=== PATIENT | female | born 1950 | race Caucasian/White ===

== ENCOUNTER → 2017-02-05 | Outpatient (CLI) | payer OTHER, MEDICARE | LOC: BMCIMAGING 10:24 | PROVIDERS: ATTEND Family Medicine | DX: Z12.39 Encounter for other screening for malignant neoplasm of breast (principal); N64.4 Mastodynia | CPT/HCPCS: 76641; G0204 ==

== ENCOUNTER → 2017-04-16 | Outpatient (CLI) | payer OTHER, MEDICARE | LOC: FIMAGING 08:46 | PROVIDERS: ATTEND Specialist | DX: N20.0 Calculus of kidney (principal); Z90.5 Acquired absence of kidney ==

== ENCOUNTER → 2017-09-02 | Outpatient (CLI) | payer OTHER, MEDICARE | LOC: BMCIMAGING 15:29 | PROVIDERS: ATTEND Podiatrist Foot & Ankle Surgery | DX: M19.072 Primary osteoarthritis, left ankle and foot (principal); M77.32 Calcaneal spur, left foot ==

== ENCOUNTER → 2017-11-04 | Outpatient (CLI) | payer OTHER, MEDICARE | LOC: FLAB 13:37 | PROVIDERS: ATTEND Specialist | DX: N20.0 Calculus of kidney (principal) ==

== ENCOUNTER → 2018-02-07 | Outpatient (CLI) | payer OTHER, MEDICARE | LOC: BMCIMAGING 09:41 | PROVIDERS: ATTEND Family Medicine | DX: Z13.820 Encounter for screening for osteoporosis (principal); M85.89 Other specified disorders of bone density and structure, multiple sites; E07.9 Disorder of thyroid, unspecified; Z96.641 Presence of right artificial hip joint; Z79.899 Other long term (current) drug therapy ==

== ENCOUNTER → 2018-02-10 | Outpatient (CLI) | payer OTHER, MEDICARE | LOC: BMCIMAGING 07:31 | PROVIDERS: ATTEND Family Medicine | DX: Z82.49 Family history of ischemic heart disease and other diseases of the circulatory system (principal); E78.00 Pure hypercholesterolemia, unspecified ==

== ENCOUNTER → 2018-02-15 | Outpatient (CLI) | payer OTHER, MEDICARE | LOC: BRMIMAGING 09:25 | PROVIDERS: ATTEND Family Medicine | DX: Z00.00 Encounter for general adult medical examination without abnormal findings (principal) ==

== ENCOUNTER → 2018-04-28 | Outpatient (CLI) | payer OTHER, MEDICARE | LOC: FIMAGING 11:11 → EDSTATUS 11:11 | PROVIDERS: ATTEND Specialist | DX: N20.0 Calculus of kidney (principal); Z90.5 Acquired absence of kidney ==

== ENCOUNTER → 2018-05-06 | Outpatient (CLI) | payer OTHER, MEDICARE | LOC: BMCIMAGING 10:13 ==

== ENCOUNTER → 2018-06-02 | Outpatient (CLI) | payer OTHER, MEDICARE | LOC: EMCIMAGING 10:23 | PROVIDERS: ATTEND Physician Assistant Medical | DX: N20.0 Calculus of kidney (principal) | CPT/HCPCS: 74176-PN ==

== ENCOUNTER → 2018-06-28 | Outpatient (CLI) | payer OTHER, MEDICARE | LOC: FIMAGING 10:45 | PROVIDERS: ATTEND Specialist | DX: N20.0 Calculus of kidney (principal) ==

== ENCOUNTER → 2018-07-27 | Outpatient (CLI) | payer OTHER, MEDICARE | LOC: FIMAGING 14:46 | PROVIDERS: ATTEND Specialist | DX: N20.0 Calculus of kidney (principal) ==

== ENCOUNTER → 2018-08-09 | Outpatient (CLI) | payer OTHER, MEDICARE | LOC: BMCIMAGING 08:38 ==

== ENCOUNTER → 2018-08-10 | Outpatient (CLI) | payer OTHER, MEDICARE | LOC: FIMAGING 18:48 ==